=== PATIENT | female | born 1940 | race Caucasian/White ===

== ENCOUNTER 2017-10-23 10:00 | Inpatient (IN) | payer OTHER, MEDICAID ==
[~2017-10-23] VITALS: Ht 160 cm; Wt 38.1 kg
[2017-10-23 10:00] VITALS: BP_SYST 156
--- NOTE | 2017-10-23 10:00 | NUR ---
BIB CARE from [facility]. Placed in room 06. Placed on product design manager, blood pressure machine and pulse oximeter. To gown for exam. Side rails up.
[2017-10-23] MEDS ORDERED: NACL 0.9% 1,000 ML IV ONE ×3 (10:15→12:30)
--- NOTE | 2017-10-23 10:20 | NUR ---
Pt presents to ER brought in per request of Dr. Mitchell from [place]. According to report received, pt has been refusing to eat. Pt is alert but unable to assess orientation, pt is contracted in upper and lower extremities. Pt does not appear to be in any acute distress, pt placed on 3L nasal canula, will continue to monitor pt.
[2017-10-23 10:31] LABS: BASOPHILS % (AUTO) 0.1 % (0.0-2.0); HEMOGLOBIN 11.5 g/dL (12.0-16.0); LYMPHOCYTES # (AUTO) 0.8 K/uL (1.0-5.5); LYMPHOCYTES % (AUTO) 6.5 % (20.5-51.5); MEAN CORPUSCULAR HEMOGLOBIN 28 pg (27-31); MEAN CORPUSCULAR HGB CONC 33 % (32-36); MEAN CORPUSCULAR VOLUME 85 fL (79.0-98.0); MONOCYTES # (AUTO) 0.5 K/uL (0.0-1.0); NEUTROPHILS # (AUTO) 10.8 K/uL (1.8-7.7); NEUTROPHILS % (AUTO) 89.4 % (40.0-70.0); PLATELET COUNT (AUTO) 371 K/uL (130-430); RED BLOOD CELL COUNT(AUTO) 4.11 MIL/uL (4.2-6.2); RED CELL DISTRIBUTION WIDTH 13.6 % (9.0-15.0); WHITE BLOOD COUNT (AUTO) 12.1 K/uL (4.8-10.8)
[2017-10-23 10:46] LABS: ANION GAP 12 (5-15); CALCIUM 9.4 mg/dL (8.4-11.0); CHLORIDE 112 mmol/L (98-107); CREATININE 1.91 mg/dL (0.55-1.30); GLUCOSE 220 mg/dL (70-99); POTASSIUM 3.7 mmol/L (3.5-5.1); SODIUM SERUM 151 mmol/L (136-145); UREA NITROGEN, BLOOD 73 mg/dL (8-21)
[2017-10-23 10:49] LABS: INR 1.1 (0.8-1.2); PROTHROMBIN TIME 11.1 SECS (9.5-12.5)
[2017-10-23 10:50] LABS: ALANINE AMINOTRANSFERASE 17 U/L (12-78); ALBUMIN 2.6 g/dL (3.4-4.8); ASPARTATE AMINOTRANSFERASE 20 U/L (10-37); TOTAL BILIRUBIN 0.4 mg/dL (0.0-1.0)
--- NOTE | 2017-10-23 11:00 | NUR ---
ER at bedside examining patient.
--- NOTE | 2017-10-23 11:05 | NUR ---
# 20 gauge angiocath placed to r forearm. Use of asceptic technique. Opsite placed over site. Blood return noted. Flushed with 10 cc of normal saline. No evidence of infiltration noted. Patient tolerated well.
--- NOTE | 2017-10-23 11:10 | NUR ---
Pt medicated and tolerating well; will continue to monitor.
[2017-10-23 11:49] LABS: BILIRUBIN,URINE NEGATIVE (NEGATIVE); BLOOD, URINE 2+ (NEGATIVE); COLOR,URINE YELLOW (YELLOW); GLUCOSE,URINE NEGATIVE (NEGATIVE); KETONES,URINE NEGATIVE (NEGATIVE); LEUKOCYTE ESTERASE ,URINE 3+ (NEGATIVE); NITRITE, URINE NEGATIVE (NEGATIVE); PH,URINE 6.5 (5.0-8.0); PROTEIN URINE 1+ (NEGATIVE)
[2017-10-23 11:51] LABS: CLARITY/URINE CLOUDY (CLEAR)
[2017-10-23 11:58] LABS: BACTERIA,URINE MANY /HPF (None Seen); WBC,URINE >100 /HPF (0-3)
[2017-10-23 11:59] LABS: MUCUS,URINE None Seen /LPF (None Seen)
--- NOTE | 2017-10-23 12:00 | NUR ---
Pt on gurney resting comfortably, VSS, will continue to monitor.
[2017-10-23] MEDS ORDERED: CARB-60 PO (12:12)
[2017-10-23] MEDS ORDERED: DIVA250T PO (12:12)
[2017-10-23] MEDS ORDERED: DIPH25TA62 (12:12)
[2017-10-23] MEDS ORDERED: FAMO20TA98 PO (12:12)
[2017-10-23] MEDS ORDERED: NA P118E RC ×2 (12:12→12:23)
[2017-10-23] MEDS ORDERED: HYDR-2470 PO (12:12)
[2017-10-23] MEDS ORDERED: COLL100 PO (12:12)
[2017-10-23] MEDS ORDERED: LORA-258 PO (12:12)
[2017-10-23] MEDS ORDERED: FER300L PO (12:12)
[2017-10-23] MEDS ORDERED: ALBU2.5V7 (12:12)
[2017-10-23] MEDS ORDERED: LIP10 PO (12:12)
[2017-10-23] MEDS ORDERED: FOLI-43 PO ×2 (12:12→12:37)
[2017-10-23] MEDS ORDERED: IPRA3AMP9 INH (12:12)
[2017-10-23] MEDS ORDERED: CLON1PAT10 TD (12:12)
[2017-10-23] MEDS ORDERED: IPRA0.2S6 INH (12:12)
[2017-10-23] MEDS ORDERED: CLON0.2T PO (12:12)
[2017-10-23] MEDS ORDERED: DULR10 RC (12:12)
[2017-10-23] MEDS ORDERED: LEVOFLOXACIN 500 MG/D5W 100 ML IV ONE (12:30)
[2017-10-23] MEDS ORDERED: MAGN400O4 PO (12:37)
[2017-10-23] MEDS ORDERED: MELA3TAB43 PO (12:37)
[2017-10-23] MEDS ORDERED: MULT-1189 PO (12:37)
[2017-10-23] MEDS ORDERED: METO-442 PO (12:37)
[2017-10-23] MEDS ORDERED: PIMA17TA PO (12:37)
[2017-10-23] MEDS ORDERED: TYLR650 RC (12:37)
[2017-10-23] MEDS ORDERED: AMLO5TAB4 PO (12:37)
[2017-10-23] MEDS ORDERED: INSU100V9 SUBCUT (12:37)
[2017-10-23] MEDS ORDERED: FURO-150 PO (12:37)
[2017-10-23] MEDS ORDERED: LEVO25TA7 PO (12:37)
[2017-10-23] MEDS ORDERED: GLIP-195 PO (12:37)
[2017-10-23] MEDS ORDERED: LISI-652 PO (12:43)
[2017-10-23] MEDS ORDERED: SERT50TA PO (12:43)
[2017-10-23] MEDS ORDERED: ASCO500T20 PO (12:43)
[2017-10-23] MEDS ORDERED: SSREG SUBCUT (12:48)
[2017-10-23] MEDS ORDERED: LEVE500T13 (12:48)
--- NOTE | 2017-10-23 13:00 | NUR ---
Transfer to tele via ACLS protocol. Licensed nurse present. IV present no signs or symptoms of infiltration.
--- NOTE | 2017-10-23 13:00 | NUR ---
Patient will be admitted to care of Dr. Mitchell. Admitted to tele unit. Will go to room 113b. Belongings list completed. Summary report printed. Report will be given at bedside.
--- NOTE | 2017-10-23 13:30 | NUR ---
admission notes rec patient from er with a dx of uti. awake but non verbally responsive. with o2 at 4 liters via nasal cannula. resp easy and unlabored and no acute distress noted. pt is contracted both upper and lower extremities. incotininent of both ways. had a bowel movement and was cleaned. keep patient dry and cleaned.ivf infusing well on the r forearm and no infiltration noted. pt is close to the nurse station. will continue to monitor patient.
--- NOTE | 2017-10-23 15:00 | NUR ---
REGGIE SCALE EVALUATION: Late note for 1500 secondary to patient care. Patient evaluated for a low Reggie score. Patient was awake, alert, nonverbal and received in a [place] bed with an Isoflex LORENZO mattress. LORENZO therapy was initiated. Patient is unable to turn independently. Skin is intact. Recommend reposition patient side to side only every 2 hours with pillow support and off-load pressure areas with pillows for pressure re-distribution. Elevate, off-load and float bilateral heels with pillows. Use moisture barrier cream on buttocks and other moisture susceptible areas QID and as needed for soiling. Perform skin care and monitor skin integrity Q shift. Maintain patient on a low air-loss mattress. 1. Sacral area: Scar tissue, present on admission. Dark discoloration on surrounding tissue. Recommend: Wash area with mild soap and water. Pat dry. Apply moisture barrier cream. Cover with foam dressing. 2. Left medial knee: Scab, present on admission. 100% black, dry scab. Recommend: No dressing needed. Monitor for signs of worsening.
--- NOTE | 2017-10-23 15:40 | NUR ---
md dr soliz in here to see and eval patient.
[2017-10-23] MEDS ORDERED: IPRATROPIUM BROM 0.5 MG/2.5 ML VIAL.NEB (ATROVENT) INH PRN (15:45)
[2017-10-23] MEDS ORDERED: IPRATROPIUM/ALBUTEROL SULFATE 3 ML AMPUL.NEB INH PRN (15:45)
[2017-10-23] MEDS ORDERED: ALBUTEROL SULFATE 0.083% 2.5 MG/3 ML VIAL.NEB INH PRN (15:45)
[2017-10-23] MEDS ORDERED: ACETAMINOPHEN 650 MG SUPP.RECT RC PRN (15:45)
[2017-10-23] MEDS ORDERED: NA PHOS,M-B/NA PHOS,DI-BA 118 ML (FLEET ENEMA) RC PRN (15:45)
[2017-10-23] MEDS ORDERED: LORazepam 1 MG TABLET PO PRN (15:45)
[2017-10-23] MEDS ORDERED: BISACODYL 10 MG/SUPPOSITORY RC PRN (15:45)
[2017-10-23] MEDS ORDERED: MILK OF MAGNESIA 30 ML UDC PO PRN (15:45)
--- NOTE | 2017-10-23 16:00 | NUR ---
rounds incontinent of urine and changed at intervals.
[2017-10-23 16:01] VITALS: BP_SYST 165
[2017-10-23 16:18] VITALS: BP_SYST 155
[2017-10-23 16:34] LABS: ANION GAP 9 (5-15); CHLORIDE 116 mmol/L (98-107); GLUCOSE 78 mg/dL (70-99); POTASSIUM 3.6 mmol/L (3.5-5.1); SODIUM SERUM 151 mmol/L (136-145); UREA NITROGEN, BLOOD 59 mg/dL (8-21)
--- NOTE | 2017-10-23 16:49 | NUR ---
CONSULTATION PAGED/CALLED Reason for Consultation: ACUTE RENAL FAILURE Person Who was Notified: SPOKE WITH MYLES FROM DR OFFICE Consulting Physician: LISA NERI DR IS ONCALL THROUGHOUT WEEKEND Apartment Hotel Manager Specialty: RENAL Ordering Physician: ROMAIN RUIZ
[2017-10-23] MEDS ORDERED: LEVOFLOXACIN 250 MG/D5W 50 ML IV SCH (17:45)
[2017-10-23] MEDS ORDERED: GLUCOSE 15 GM GEL (in 37.5 GM TUBE) PO PRN ×2 (18:00)
[2017-10-23] MEDS ORDERED: DEXTROSE 50%-WATER 50 ML DISP.SYRIN IVP PRN (18:00)
--- NOTE | 2017-10-23 18:00 | NUR ---
rounds seen by dr soliz and spoke with the pt's business support administrator.pt refused to eat and dr is aware. seen by dr coker at bedside. resting quietly, no hypo hyperglycemic reaction noted. bed in low position and side rails up and locked.
[2017-10-23] MEDS: 0.45% NACL 1,000 ML IV SCH (18:38)
[2017-10-23 19:55] VITALS: BP_SYST 157
--- NOTE | 2017-10-23 19:55 | NUR ---
INITIAL NOTE Patient resting on the bed. No acute distress. Respiration even and unlabored. On O2 2L/min via NC. Non verbally responsive. Skin warm and dry to touch. IV intact ti RFA, no redness, no swelling, no drainage. On 1/2NS at 100ml/hr, infusing well. Safety measure maintained. Bed locked with lowest position, side rails up, bed alarm on. Call light within reached. Will continue to monitor.
--- NOTE | 2017-10-23 20:15 | NUR ---
DRUM FILLER GIVING BED BATH TO PATIENT
[2017-10-23] MEDS ORDERED: NON-FORMULARY MEDICATION (Melatonin 3 MG) PO SCH (21:00)
[2017-10-23] MEDS: DOCUSATE SODIUM 100 MG/10 ML UDC PO SCH (22:07)
[2017-10-23] MEDS: levETIRAcetam 500 MG TABLET PO SCH (22:08)
[2017-10-23] MEDS: DIVALPROEX SODIUM 250 MG TAB.SR.24H (DEPAKOTE ER) PO SCH (22:08)
[2017-10-23] MEDS: CARBIDOPA/LEVODOPA 10/100 MG TABLET PO SCH (22:08)
[2017-10-23] MEDS: LISINOPRIL 20 MG TABLET PO SCH (22:08)
--- NOTE | 2017-10-23 22:17 | NUR ---
BS=63 No acute distress. No s/s of hypoglycemia noted. Glucose 15gm PO and orange 120ml given. Will rechecked BS and notify
--- NOTE | 2017-10-23 22:51 | NUR ---
RECHECKED BLOOD SUGAR BS=85, no s/s of hypoglycemia noted. No acute distress. Continue on O2 2L/min via NC. Safety measure maintained. Bed locked with lowest position, side rails up, bed alarm on. Call light within reached. Continue to monitor.
--- NOTE | 2017-10-23 23:02 | NUR ---
Pagedonald Mitchell Pagedonald Mitchell, dialed [phone], s/w Cassy.
--- NOTE | 2017-10-23 23:12 | NUR ---
LARISSA COOK CALLED BACK Informed Dr. Mitchell regarding the BS=63, Glucose 15gm PO and orange juice 120ml given. Rechecked BS=85. Dr. Mitchell stated "BS=85, that's fine. If any concern to call Dr. Carlson who is covering."
[2017-10-24 00:34] VITALS: BP_SYST 171
--- NOTE | 2017-10-24 01:13 | NUR ---
NOTE Patient resting on the bed comfortable. No acute distress. Respiration even and unlabored. On O2 2L/min via NC. IV intact, IVF infusing well. Safety measure maintained. Bed locked with lowest position, side rails up, bed alarm on. Call light within reached. Continue to monitor.
--- NOTE | 2017-10-24 03:18 | NUR ---
NOTE Patient resting on the bed with eyes closed. No acute distress. Respiration even and unlabored. On O2 2L/min via NC. IV intact, IVF infusing well. Safety measure maintained. Bed locked with lowest position, side rails up, bed alarm on. Call light within reached. Continue to monitor.
--- NOTE | 2017-10-24 05:00 | NUR ---
NOTE Patient resting on the bed with eyes closed. No acute distress. Respiration even and unlabored. On O2 2L/min via NC. IV intact, IVF infusing well. Safety measure maintained. Call light within reached. Bed locked with lowest position, side rails up, bed alarm on. Continue to monitor.
[2017-10-24] MEDS: 0.45% NACL 1,000 ML IV SCH ×2 (05:31→14:16)
[2017-10-24] MEDS: LEVOTHYROXINE SODIUM 0.025 MG TABLET PO SCH (06:33)
--- NOTE | 2017-10-24 06:53 | NUR ---
CLOSING NOTE Patient resting on the bed. No acute distress. Respiration even and unlabored. Continue on O2 2L/min via NC. Non verbally responsive. Skin warm and dry to touch. IV intact to RFA, no redness, no swelling, no drainage. On 1/2NS at 100ml/hr, infusing well. All needs met. Hourly rounding during shift. BS= 115 this morning, no insulin coverage needed. Safety measure maintained. Bed locked with lowest position, side rails up, bed alarm on. Call light within reached. Will endorse to morning shift nurse.
[2017-10-24 07:11] LABS: BASOPHILS % (AUTO) 0.1 % (0.0-2.0); EOSINOPHILS % (AUTO) 0.2 % (0.0-4.0); HEMOGLOBIN 10.1 g/dL (12.0-16.0); LYMPHOCYTES # (AUTO) 0.9 K/uL (1.0-5.5); LYMPHOCYTES % (AUTO) 6.9 % (20.5-51.5); MEAN CORPUSCULAR HEMOGLOBIN 28 pg (27-31); MEAN CORPUSCULAR HGB CONC 33 % (32-36); MEAN CORPUSCULAR VOLUME 86 fL (79.0-98.0); MONOCYTES # (AUTO) 0.5 K/uL (0.0-1.0); MONOCYTES % (AUTO) 3.9 % (1.7-9.3); NEUTROPHILS % (AUTO) 88.9 % (40.0-70.0); PLATELET COUNT (AUTO) 339 K/uL (130-430); RED BLOOD CELL COUNT(AUTO) 3.63 MIL/uL (4.2-6.2); RED CELL DISTRIBUTION WIDTH 13.7 % (9.0-15.0); WHITE BLOOD COUNT (AUTO) 12.4 K/uL (4.8-10.8)
[2017-10-24 07:20] LABS: ANION GAP 7 (5-15); CALCIUM 9.2 mg/dL (8.4-11.0); CHLORIDE 114 mmol/L (98-107); CREATININE 1.26 mg/dL (0.55-1.30); GLUCOSE 132 mg/dL (70-99); POTASSIUM 3.4 mmol/L (3.5-5.1); SODIUM SERUM 148 mmol/L (136-145); UREA NITROGEN, BLOOD 44 mg/dL (8-21)
--- NOTE | 2017-10-24 07:27 | NUR ---
Initial Note Received report from the night nurse Isabell. Pt AOX1. No signs of distress noted at this time. Bed is a lowest position and bed alarm on. Call light within reach.
[2017-10-24 08:05] VITALS: BP_SYST 174
[2017-10-24] MEDS ORDERED: PIMAVANSERIN TARTRATE 34 MG PO SCH (09:00)
[2017-10-24] MEDS ORDERED: INSULIN GLARGINE 100 UNITS/ML 10 ML VIAL SUBCUT SCH (09:00)
[2017-10-24] MEDS ORDERED: FUROSEMIDE 20 MG TABLET PO SCH (09:00)
[2017-10-24] MEDS ORDERED: FOLIC ACID 1 MG TABLET PO SCH (09:00)
[2017-10-24] MEDS: CARBIDOPA/LEVODOPA 10/100 MG TABLET PO SCH ×3 (10:18→21:52)
[2017-10-24] MEDS: FERROUS SULFATE 300 MG/5 ML UDC PO SCH (10:18)
[2017-10-24] MEDS: FOLIC ACID 1 MG TABLET PO SCH (10:19)
[2017-10-24] MEDS: DIVALPROEX SODIUM 250 MG TAB.SR.24H (DEPAKOTE ER) PO SCH ×2 (10:20→21:54)
[2017-10-24] MEDS: DOCUSATE SODIUM 100 MG/10 ML UDC PO SCH ×2 (10:20→21:51)
[2017-10-24] MEDS: ASCORBIC ACID 500 MG TABLET PO SCH (10:21)
[2017-10-24] MEDS: levETIRAcetam 500 MG TABLET PO SCH ×2 (10:21→21:52)
[2017-10-24] MEDS: MULTIVITS,CA,MINERALS/IRON/FA 1 TABLET PO SCH (10:21)
[2017-10-24] MEDS: LISINOPRIL 20 MG TABLET PO SCH ×2 (10:21→21:53)
[2017-10-24] MEDS: SERTRALINE HCL 50 MG TABLET PO SCH (10:21)
[2017-10-24] MEDS: amLODIPine BESYLATE 5 MG TABLET PO SCH (10:22)
[2017-10-24] MEDS: ATORVASTATIN 10 MG TABLET PO SCH (10:22)
[2017-10-24] MEDS: FAMOTIDINE 20 MG TABLET PO SCH (10:22)
[2017-10-24] MEDS: LEVOFLOXACIN 250 MG/D5W 50 ML IV SCH (10:23)
[2017-10-24] MEDS: glipiZIDE XL 5 MG TAB ( GLUCOTROL XL) PO SCH (10:25)
--- NOTE | 2017-10-24 11:45 | NUR ---
RN Rounds Pt awake and does not shows any signs of distress at this time. Bed is at lowest position with bed alarm on. Call light within reach.
[2017-10-24 12:47] VITALS: BP_SYST 168
--- NOTE | 2017-10-24 14:10 | NUR ---
Abnormal Labs Called Dr. Carlson to report Na 148, K 3.4. and ordered potassium 20 meq x 1, pureed diet.
[2017-10-24] MEDS: METOPROLOL TARTRATE 50 MG TABLET PO SCH ×2 (14:11→21:53)
[2017-10-24] MEDS ORDERED: POTASSIUM CHLORIDE 20 MEQ/PKT PACKET PO ONE (14:30)
--- NOTE | 2017-10-24 15:30 | NUR ---
RN Rounds Pt awake and does not shows any signs of distress at this moment. Bed is at lowest position with bed alarm on. Call light within reach.
[2017-10-24 16:10] VITALS: BP_SYST 154
[2017-10-24] MEDS: DEXTROSE 50%-WATER 50 ML DISP.SYRIN IVP PRN (17:47)
--- NOTE | 2017-10-24 17:50 | NUR ---
Blood Glucose BS 56. Dextrose 50% IVP given. Waiting to recheck BS. Addendum: 10/24/17 at 1806 by Abelardo Chicas RN Rechecked blood sugar after 15 min and is now at 185
--- NOTE | 2017-10-24 18:50 | NUR ---
Closing Note Pt AOX1. No signs of distress noted at this time. Bed is at lowest position with bed alarm on. Call light within reach.
[2017-10-24 19:05] VITALS: BP_SYST 155
--- NOTE | 2017-10-24 19:05 | NUR ---
OPENING NOTE Received SBAR report from [facility] JOCE Zhou. Patient is awake/alert, not oriented. No acute distress noted, 155/78 79 18 98.1 99% (2L NC) and does not appear to be in any pain/discomfort. IV to the right forearm 20G, running 1/2 NS @ 100ml/hr, verified patency with good blood return/flush. Introduced myself to patient, updated whiteboard and oriented patient to room. Bed to lowest position and locked, 3 side rails up, bed alarm activated and call light is within her reach. Will continue to monitor patient.
--- NOTE | 2017-10-24 21:20 | NUR ---
ROUNDS Patient is awake/alert, non-verbal or oriented. Patient does not seem to be in any acute distress. She has no shortness of breath, and equal rise and fall of chest with 18/min respirations. STONEMASON APPRENTICE currently in with patient changing linens and patient. Bed to lowest position and locked, 3 side rails up, bed alarm activated and call light is within her reach. Will continue to monitor patient.
[2017-10-24] MEDS: ENOXAPARIN SODIUM 30 MG/0.3 ML SYRINGE SUBCUT SCH (21:53)
--- NOTE | 2017-10-24 21:55 | NUR ---
BLOOD GLUCOSE : 124 No correction necessary per physician ordered sliding scale.
[2017-10-24 23:16] VITALS: BP_SYST 161
--- NOTE | 2017-10-25 00:09 | NUR ---
ROUNDS Patient is still awake with no shortness of breath or acute distress noted. Respirations are still non-labored and even. Gave patient some water via straw. Bed to lowest position and locked, 3 side rails up, bed alarm activated and call light is within her reach. Will continue to monitor patient.
[2017-10-25] MEDS: 0.45% NACL 1,000 ML IV SCH ×4 (00:27→22:05)
--- NOTE | 2017-10-25 02:29 | NUR ---
ROUNDS Patient is awake/alert. Originally patient was thought to be non-verbal. Spoke to patient, asked her if she was cold as I noticed goosebumps she said 'yes', asked her if she's in pain, she says 'no'. Asked patient if there is anything I can get for her, she does not respond. O2 is applied and flowing. IV site is clean/dry/intact.Bed to lowest position and locked, 3 side rails up, bed alarm activated and call light is within her reach. Will continue to monitor patient.
--- NOTE | 2017-10-25 04:40 | NUR ---
ROUNDS Patient is still sleeping. Symmetric, non-labored respirations, 16/min. O2 applied/functioning. IV site clean/dry/intact with no signs of redness or infiltration and 1/2 NS running @ 100ml/hr. Bed to lowest position and locked, bed alarm activated, call light within her reach, 3 side rails are up. Will continue to monitor patient.
[2017-10-25] MEDS: LEVOTHYROXINE SODIUM 0.025 MG TABLET PO SCH (06:21)
[2017-10-25] MEDS: METOPROLOL TARTRATE 50 MG TABLET PO SCH ×3 (06:23→21:56)
--- NOTE | 2017-10-25 06:23 | NUR ---
BLOOD GLUCOSE : 65 Gave 4oz OJ, re-checked blood glucose: 86 Will continue to monitor patient.
[2017-10-25] MEDS: cloNIDine HCL 0.2 MG TABLET PO PRN (06:26)
--- NOTE | 2017-10-25 06:26 | NUR ---
CATAPRES Patient's BP 165/65, administered Catapres 0.2mg as order for SBP >150. Will follow-up to ensure effective BP management. Addendum: 10/25/17 at 0719 by Althea Dupree RN BP is now 142/69
--- NOTE | 2017-10-25 07:19 | NUR ---
CLOSING NOTE Gave end of shift sbar report to day shift RNAbelardo. Patient is awake/alert, not oriented: in no acute distress All needs expectations and interventions met by nightshift RN. Transfer of care successful.
[2017-10-25 07:25] VITALS: BP_SYST 142
--- NOTE | 2017-10-25 07:25 | NUR ---
Initial Note Received report from the night nurse Althea. Pt AOX1. No signs of distress noted at this time. Bed is at lowest position with bed alarm on. Call light within reach.
[2017-10-25 08:05] LABS: ANION GAP 7 (5-15); CALCIUM 8.7 mg/dL (8.4-11.0); CHLORIDE 108 mmol/L (98-107); GLUCOSE 70 mg/dL (70-99); POTASSIUM 3.7 mmol/L (3.5-5.1); SODIUM SERUM 140 mmol/L (136-145); UREA NITROGEN, BLOOD 27 mg/dL (8-21)
[2017-10-25 08:08] LABS: BASOPHILS % (AUTO) 0.1 % (0.0-2.0); EOSINOPHILS # (AUTO) 0.1 K/uL (0.0-0.4); EOSINOPHILS % (AUTO) 0.6 % (0.0-4.0); HEMATOCRIT 30.4 % (36-48); LYMPHOCYTES # (AUTO) 1.5 K/uL (1.0-5.5); LYMPHOCYTES % (AUTO) 13.8 % (20.5-51.5); MEAN CORPUSCULAR HEMOGLOBIN 28 pg (27-31); MEAN CORPUSCULAR HGB CONC 33 % (32-36); MEAN CORPUSCULAR VOLUME 86 fL (79.0-98.0); MONOCYTES # (AUTO) 0.5 K/uL (0.0-1.0); MONOCYTES % (AUTO) 4.5 % (1.7-9.3); NEUTROPHILS # (AUTO) 8.8 K/uL (1.8-7.7); PLATELET COUNT (AUTO) 373 K/uL (130-430); RED BLOOD CELL COUNT(AUTO) 3.54 MIL/uL (4.2-6.2); RED CELL DISTRIBUTION WIDTH 13.3 % (9.0-15.0); WHITE BLOOD COUNT (AUTO) 10.9 K/uL (4.8-10.8)
[2017-10-25] MEDS: FERROUS SULFATE 300 MG/5 ML UDC PO SCH (09:08)
[2017-10-25] MEDS: DOCUSATE SODIUM 100 MG/10 ML UDC PO SCH ×2 (09:08→21:51)
[2017-10-25] MEDS: FOLIC ACID 1 MG TABLET PO SCH (09:08)
[2017-10-25] MEDS: ATORVASTATIN 10 MG TABLET PO SCH (09:09)
[2017-10-25] MEDS: MULTIVITS,CA,MINERALS/IRON/FA 1 TABLET PO SCH (09:09)
[2017-10-25] MEDS: SERTRALINE HCL 50 MG TABLET PO SCH (09:09)
[2017-10-25] MEDS: levETIRAcetam 500 MG TABLET PO SCH ×2 (09:09→21:52)
[2017-10-25] MEDS: LISINOPRIL 20 MG TABLET PO SCH ×2 (09:09→21:55)
[2017-10-25] MEDS: amLODIPine BESYLATE 5 MG TABLET PO SCH (09:10)
[2017-10-25] MEDS: ASCORBIC ACID 500 MG TABLET PO SCH (09:10)
[2017-10-25] MEDS: FAMOTIDINE 20 MG TABLET PO SCH (09:10)
[2017-10-25] MEDS: CARBIDOPA/LEVODOPA 10/100 MG TABLET PO SCH ×3 (09:11→21:52)
[2017-10-25] MEDS: DIVALPROEX SODIUM 250 MG TAB.SR.24H (DEPAKOTE ER) PO SCH ×2 (09:12→21:52)
[2017-10-25] MEDS: LEVOFLOXACIN 250 MG/D5W 50 ML IV SCH (09:12)
[2017-10-25] MEDS: glipiZIDE XL 5 MG TAB ( GLUCOTROL XL) PO SCH (09:48)
--- NOTE | 2017-10-25 11:56 | NUR ---
DISCHARGE PLANNING - ATTEMPT TO GET ADDITIONAL INFO ABOUT PATIENT C/S with listed person to notify: Jacinto Sosa ph: [phone]. He stated he has known patient x9 yrs now when patient became active in their taoist, Jehov[employer] Witness. He do not know much about pt's education or family. He thinks pt's other friend, Shraddha Winston, is her DPOA. He gave contact cell phone for Joanne: [phone], land line: [phone]. Atempted to contact Shraddhadominick Tripathiona cell phone: [phone], land line: [phone]. Left . Contacted listed ph: [phone]. Left . Shraddha returned call. She stated she has only 1 working phone number: [phone]. The rest of the phone numbers do not belong to her anymore. She stated she is the DPOA for patient. She will fax CM a copy. Joanne assisted in completion of DCP today.
[2017-10-25 12:49] VITALS: BP_SYST 131
--- NOTE | 2017-10-25 14:30 | NUR ---
Paged Dr. Carlson to report: pt is positive for E.Coli/MDRO of the urin, and blood culture: gram positive cocci in cluster. Has already called and ordered [facility] to dose, Rocephin 1 GM IV q24hr, and DC Levaquin.
[2017-10-25] MEDS ORDERED: cefTRIAXone 1 GM in D5W 50 ML IV ONE (16:00)
[2017-10-25 16:15] VITALS: BP_SYST 149
[2017-10-25] MEDS ORDERED: VANCOMYCIN HCL 500 MG in NS 100 ML IV SCH (17:00)
--- NOTE | 2017-10-25 18:41 | NUR ---
Closing Note Pt AOX1. No signs of distress noted at this time. Bed is at lowest position with bed alarm on. Call light within reach. Pt positive for E.Coli/MDRO of the urine, and blood culture gram positive cocci in cluster. Dr. Carlson is aware and ordered [facility] pharmacy to dose, Rocephin 1 GM IV q24hr, and DC Levaquin.
[2017-10-25 19:00] VITALS: BP_SYST 191
[2017-10-25 20:00] VITALS: BP_SYST 191
[2017-10-25] MEDS: ENOXAPARIN SODIUM 30 MG/0.3 ML SYRINGE SUBCUT SCH (21:53)
[2017-10-26] VITALS: BP_SYST 149
--- NOTE | 2017-10-26 05:59 | NUR ---
Consult called for Shana Hargrove Reason for consultation: Bacteremia Ordered by Dr. Carlson Person who was notified: Karina
[2017-10-26] MEDS: METOPROLOL TARTRATE 50 MG TABLET PO SCH ×3 (06:13→21:13)
[2017-10-26] MEDS: LEVOTHYROXINE SODIUM 0.025 MG TABLET PO SCH (06:14)
[2017-10-26 07:09] LABS: HEMATOCRIT 35.5 % (36-48); HEMOGLOBIN 11.7 g/dL (12.0-16.0); MEAN CORPUSCULAR HEMOGLOBIN 28 pg (27-31); MEAN CORPUSCULAR HGB CONC 33 % (32-36); MEAN CORPUSCULAR VOLUME 85 fL (79.0-98.0); PLATELET COUNT (AUTO) 474 K/uL (130-430); RED BLOOD CELL COUNT(AUTO) 4.16 MIL/uL (4.2-6.2); RED CELL DISTRIBUTION WIDTH 13.6 % (9.0-15.0); WHITE BLOOD COUNT (AUTO) 11.4 K/uL (4.8-10.8)
--- NOTE | 2017-10-26 07:50 | NUR ---
Nutrition Update Reggie Scale 11 noted. Pt admitted for UTI Diet: Pureed diet BMI: 14.9 kg/m2 RD to follow per nutrition care standards.
--- NOTE | 2017-10-26 07:53 | NUR ---
OPENING NOTE PATIENT RECEIVED RESTING IN BED IN STABLE CONDITION. NO DISTRESS OR SOB NOTED. IV SITE INTACT WITH NO REDNESS OR SIGNS OF INFILTRATION. BED ALARM WATER AND SEWER SYSTEMS SUPERINTENDENT LIGHT IN REACH, BED ON LOWEST POSITION. WILL CONTINUE TO MONITOR.
[2017-10-26 08:11] LABS: CREATININE 0.89 mg/dL (0.55-1.30); GLUCOSE 86 mg/dL (70-99); UREA NITROGEN, BLOOD 22 mg/dL (8-21)
[2017-10-26 08:20] LABS: ANION GAP 8 (5-15); CHLORIDE 105 mmol/L (98-107); POTASSIUM 4.3 mmol/L (3.5-5.1); SODIUM SERUM 136 mmol/L (136-145)
[2017-10-26 08:24] VITALS: BP_SYST 124
[2017-10-26 08:37] LABS: BAND % (MANUAL) 2 % (0-6); LYMPHOCYTES % (MANUAL) 17 % (20-46); MONOCYTES % (MANUAL) 2 % (0-11)
[2017-10-26 08:38] LABS: BASOPHILS % (MANUAL) 0 % (0-2); EOSINOPHILS % (MANUAL) 1 % (0-7)
[2017-10-26] MEDS: DOCUSATE SODIUM 100 MG/10 ML UDC PO SCH ×2 (09:43→21:11)
[2017-10-26] MEDS: cefTRIAXone 1 GM in D5W 50 ML IV SCH (09:43)
[2017-10-26] MEDS: FERROUS SULFATE 300 MG/5 ML UDC PO SCH (09:43)
[2017-10-26] MEDS: FOLIC ACID 1 MG TABLET PO SCH (09:44)
[2017-10-26] MEDS: ASCORBIC ACID 500 MG TABLET PO SCH (09:44)
[2017-10-26] MEDS: ATORVASTATIN 10 MG TABLET PO SCH (09:44)
[2017-10-26] MEDS: MULTIVITS,CA,MINERALS/IRON/FA 1 TABLET PO SCH (09:45)
[2017-10-26] MEDS: glipiZIDE XL 5 MG TAB ( GLUCOTROL XL) PO SCH (09:45)
[2017-10-26] MEDS: levETIRAcetam 500 MG TABLET PO SCH ×2 (09:45→21:13)
[2017-10-26] MEDS: CARBIDOPA/LEVODOPA 10/100 MG TABLET PO SCH ×3 (09:45→21:12)
[2017-10-26] MEDS: amLODIPine BESYLATE 5 MG TABLET PO SCH (09:45)
[2017-10-26] MEDS: LISINOPRIL 20 MG TABLET PO SCH ×2 (09:45→21:12)
[2017-10-26] MEDS: FAMOTIDINE 20 MG TABLET PO SCH (09:46)
[2017-10-26] MEDS: DIVALPROEX SODIUM 250 MG TAB.SR.24H (DEPAKOTE ER) PO SCH ×2 (09:46→21:11)
[2017-10-26] MEDS: SERTRALINE HCL 50 MG TABLET PO SCH (09:46)
[2017-10-26 10:07] VITALS: BP_SYST 124
[2017-10-26 11:09] VITALS: BP_SYST 159
--- NOTE | 2017-10-26 11:37 | NUR ---
ROUNDS PATIENT RESTING IN BED IN STABLE CONDITION WITH NO S/S OF DISTRESS OR SOB NOTED. TURNED, REPOSITIONED, AND CLEANED WITH LEAD SECURITY OFFICER. WILL CONTINUE TO MONITOR.
[2017-10-26] MEDS: 0.45% NACL 1,000 ML IV SCH ×2 (13:58→23:27)
--- NOTE | 2017-10-26 14:32 | NUR ---
ROUNDS PATIENT RESTING IN BED IN STABLE CONDITION. NO S/S OF DISTRESS OR SOB NOTED AT THIS TIME. NO EVIDENCE OF PAIN. PATIENT REPOSITIONED AND CHANGED. IV SITE INTACT WITH NO REDNESS OR SIGNS OF INFILTRATION NOTED. BED ALARM ON, BED IN LOWEST POSITION, CALL LIGHT IN REACH. WILL CONTINUE TO MONITOR.
--- NOTE | 2017-10-26 14:45 | NUR ---
Dietitian Recommendations *Recommend continuing pureed diet nectar thick liquid per MD orders. Oral supplement Boost Plus comes standard w/ Pureed diet, provides additional 1080 kcal and 42 gm protein daily. Please see Nutritional Assessment for details. JONATHAN, RD
[2017-10-26] MEDS: cloNIDine HCL 0.2 MG TABLET PO PRN (16:31)
[2017-10-26 16:35] VITALS: BP_SYST 185
--- NOTE | 2017-10-26 19:06 | NUR ---
CLOSING NOTE PATIENT RESTING IN BED IN STABLE CONDITION. NO S/S OF DISTRESS OR SOB NOTED. 2L O2 VIA NASAL CANULA IN PLACE. IV SITE INTACT WITH NO REDNESS OR SIGNS OF INFILTRATION. BED ALARM IN LOWEST POSITION, BED ALARM ON, CALL LIGHT IN REACH. WILL ENDORSE TO FRETTED INSTRUMENT MAKER HAND RN.
[2017-10-26 19:30] VITALS: BP_SYST 125
--- NOTE | 2017-10-26 19:58 | NUR ---
OPENING Bedside report recieved, pt awake in bed at this time, nonverbal, fussy. In NAD, fluids running continuously, safety maintained, call dunlap with patient, bed alarm active. VSS. Contact precuations maintained, continue POC as per MD orders.
[2017-10-26] MEDS: ENOXAPARIN SODIUM 30 MG/0.3 ML SYRINGE SUBCUT SCH (21:13)
[2017-10-26] MEDS: INSULIN REGULAR, HUMAN 100 UNITS/ML, 10 ML VIAL (novoLIN R) SUBCUT PRN (21:15)
--- NOTE | 2017-10-26 21:50 | NUR ---
medication Blood sugar 113 with no coverage needed. BP elevated and medications admin as per orders. Pt swallowed pills crushed in boost drink at bedside. Pt cleaned at this time as she is incontinent of urine and stool. Pt in NAD, all needs met. Safety maintained, contact precautions maintained. Cont POC as per MD orders/
[2017-10-26] MEDS: hydrALAZINE HCL 25 MG TABLET PO SCH ×2 (23:26→23:45)
--- NOTE | 2017-10-27 00:15 | NUR ---
rounds Pt resting comfortably in bed at this time, Blood pressure 127/57 HR 90s. Hydralazine PO administered as per orders. Pt safety maintained, new bag of NS hung at this time. Cont POC as per MD orders. Safety maintained
[2017-10-27 01:22] VITALS: BP_SYST 160
--- NOTE | 2017-10-27 02:09 | NUR ---
Rounds Pt resting comfortably in bed at this time, all needs met, safety maintained, nasal canulla placed back on patient an she seems to fuss with it and take it off. Continue POC as per MD orders.
--- NOTE | 2017-10-27 04:18 | NUR ---
Rounds Pt resting comfortably at this time, NAD noted. Safety maintained, call dunlap with patient, turn and position, sacral foam drsg intact, continue with POC as per MD orders.
[2017-10-27] MEDS: INSULIN REGULAR, HUMAN 100 UNITS/ML, 10 ML VIAL (novoLIN R) SUBCUT PRN ×2 (06:27→21:24)
[2017-10-27] MEDS: METOPROLOL TARTRATE 50 MG TABLET PO SCH ×3 (06:28→23:14)
[2017-10-27] MEDS: LEVOTHYROXINE SODIUM 0.025 MG TABLET PO SCH (06:28)
[2017-10-27] MEDS: hydrALAZINE HCL 25 MG TABLET PO SCH ×4 (06:28→23:14)
--- NOTE | 2017-10-27 06:53 | NUR ---
am rounds, CLOSING Pt BP 159/74, HR 90s this am. Hydralazine and lopressor administered per orders crushed in pureed cranberry. Pt blood glucose 70 this am, given pureed cranberry and viscose cellar charge hand Alyce kennedy. Instructed to let her drink that and follow up day shift, pt to be fed breakfast shortly as well. Pt in NAD, all other needs met at this time. Pt safety maintained, bed alarm active, incontinent to pad, IVF fluids running as per MD orders, will endorse POC to day RN at this time. Contact precautions maintained.
[2017-10-27 08:00] VITALS: BP_SYST 177
--- NOTE | 2017-10-27 08:00 | NUR ---
Initial notes: Patient on bed awake, alert and oriented to name. Non verbal. I.V. access patent. Safety measures in placed. Report received at bedside.
[2017-10-27] MEDS: DOCUSATE SODIUM 100 MG/10 ML UDC PO SCH ×2 (08:21→21:19)
[2017-10-27] MEDS: FERROUS SULFATE 300 MG/5 ML UDC PO SCH (08:21)
[2017-10-27] MEDS: cefTRIAXone 1 GM in D5W 50 ML IV SCH (08:21)
[2017-10-27] MEDS: FAMOTIDINE 20 MG TABLET PO SCH (08:22)
[2017-10-27] MEDS: ATORVASTATIN 10 MG TABLET PO SCH (08:22)
[2017-10-27] MEDS: FOLIC ACID 1 MG TABLET PO SCH (08:22)
[2017-10-27] MEDS: MULTIVITS,CA,MINERALS/IRON/FA 1 TABLET PO SCH (08:22)
[2017-10-27] MEDS: amLODIPine BESYLATE 5 MG TABLET PO SCH (08:23)
[2017-10-27] MEDS: LISINOPRIL 20 MG TABLET PO SCH ×2 (08:23→21:23)
[2017-10-27] MEDS: CARBIDOPA/LEVODOPA 10/100 MG TABLET PO SCH ×3 (08:24→21:23)
[2017-10-27] MEDS: levETIRAcetam 500 MG TABLET PO SCH ×2 (08:24→21:23)
[2017-10-27] MEDS: SERTRALINE HCL 50 MG TABLET PO SCH (08:24)
[2017-10-27] MEDS: ASCORBIC ACID 500 MG TABLET PO SCH (08:24)
[2017-10-27] MEDS: DIVALPROEX SODIUM 250 MG TAB.SR.24H (DEPAKOTE ER) PO SCH ×2 (08:25→21:23)
[2017-10-27] MEDS: glipiZIDE XL 5 MG TAB ( GLUCOTROL XL) PO SCH (08:34)
--- NOTE | 2017-10-27 08:38 | NUR ---
ID consult: called exchange to request consultation again from Dr. Hargrove for bacteremia.
--- NOTE | 2017-10-27 08:47 | NUR ---
medication: medication given crushed with apple sauce. Patient able to swallow and difficult to give medication, keeps on scratching the nurse.
[2017-10-27 09:01] LABS: HEMATOCRIT 33.4 % (36-48); HEMOGLOBIN 10.9 g/dL (12.0-16.0); MEAN CORPUSCULAR HEMOGLOBIN 28 pg (27-31); MEAN CORPUSCULAR HGB CONC 33 % (32-36); MEAN CORPUSCULAR VOLUME 86 fL (79.0-98.0); PLATELET COUNT (AUTO) 512 K/uL (130-430); RED BLOOD CELL COUNT(AUTO) 3.88 MIL/uL (4.2-6.2); RED CELL DISTRIBUTION WIDTH 13.6 % (9.0-15.0); WHITE BLOOD COUNT (AUTO) 11.6 K/uL (4.8-10.8)
[2017-10-27 09:26] LABS: ANION GAP 6 (5-15); CALCIUM 8.5 mg/dL (8.4-11.0); CHLORIDE 109 mmol/L (98-107); CREATININE 0.88 mg/dL (0.55-1.30); GLUCOSE 101 mg/dL (70-99); POTASSIUM 4.2 mmol/L (3.5-5.1); SODIUM SERUM 139 mmol/L (136-145); UREA NITROGEN, BLOOD 24 mg/dL (8-21)
[2017-10-27 09:47] LABS: BAND % (MANUAL) 3 % (0-6); LYMPHOCYTES % (MANUAL) 13 % (20-46)
[2017-10-27 09:48] LABS: BASOPHILS % (MANUAL) 0 % (0-2); EOSINOPHILS % (MANUAL) 2 % (0-7); MONOCYTES % (MANUAL) 5 % (0-11)
[2017-10-27] MEDS: 0.45% NACL 1,000 ML IV SCH ×2 (10:31→21:19)
[2017-10-27] MEDS: cloNIDine HCL 0.2 MG TABLET PO PRN (10:32)
--- NOTE | 2017-10-27 10:34 | NUR ---
Increased BP: Increased BP. Due meds given. Iza kennedy.
[2017-10-27 11:46] VITALS: BP_SYST 126
--- NOTE | 2017-10-27 12:30 | NUR ---
rounds: patient on bed awake and non verbal. no distress noted. BP controlled.
--- NOTE | 2017-10-27 13:33 | NUR ---
rounds: patient on bed resting. no distress noted.
[2017-10-27 16:10] VITALS: BP_SYST 137
--- NOTE | 2017-10-27 17:00 | NUR ---
rounds: patient resting. no distress noted.
[2017-10-27 18:44] VITALS: BP_SYST 132
--- NOTE | 2017-10-27 18:59 | NUR ---
closing notes: Patient on bed resting. Stable. Needs attended. Safety measures in placed. Call light within reach. Report will be given to evening or night nurse supervisor.
[2017-10-27 19:30] VITALS: BP_SYST 137
--- NOTE | 2017-10-27 20:00 | NUR ---
OPENING Pt receieved from JOCE Lr at change of shit, pt in NAD at this time, IVF running as per orders, needs met, continue POC as per MD orders. VSS. Safety maintained, contact precautions maintained.
[2017-10-27] MEDS: ENOXAPARIN SODIUM 30 MG/0.3 ML SYRINGE SUBCUT SCH (21:24)
--- NOTE | 2017-10-27 21:57 | NUR ---
it security administrator, rounds, cleaned at this time Pt fighting during cleaning and checking blood sugar at this time, grabbing and scratching. Blood sugar 109 no correction needed. BP 137/66, HR 66. Meds crushed and admin with boost drink at this time. New bag 1/2 NS hung at this time, Safety maintained, turned and repositioned, bed alarm active, cont POC as per MD orders.
--- NOTE | 2017-10-27 23:37 | NUR ---
Pt BP 159/74, HR 90 at this time: lopressor and hydralazine admin PO as per MD orders. Pt turned and positioned. All new tubing changed as they are up at midnight. Safety maintained, call dunlap in bed with patient, hourly rounding continued, contact precautions active, bed alarm active. Continue POC as per MD orders.
[2017-10-28 00:34] VITALS: BP_SYST 142
--- NOTE | 2017-10-28 02:15 | NUR ---
Pt awake in bed at this time, turned and repositioned, pt in NAD, safety maintained, will continue POC as per MD orders.
--- NOTE | 2017-10-28 04:15 | NUR ---
Rounds Pt awake in bed at this time, pt seemed to not sleep much this evening. Safety maintained, all needs met at this time, continue POC as per MD orders.
[2017-10-28] MEDS: hydrALAZINE HCL 25 MG TABLET PO SCH ×3 (05:53→17:48)
[2017-10-28] MEDS: METOPROLOL TARTRATE 50 MG TABLET PO SCH ×3 (05:54→22:40)
[2017-10-28] MEDS: LEVOTHYROXINE SODIUM 0.025 MG TABLET PO SCH (06:01)
[2017-10-28] MEDS: INSULIN REGULAR, HUMAN 100 UNITS/ML, 10 ML VIAL (novoLIN R) SUBCUT PRN (06:11)
--- NOTE | 2017-10-28 06:30 | NUR ---
CLOSING Pt resting in bed at this time, in no acute distress, medications administered as per orders BP 152/70 HR 73. Blood glucose 80 and no correction required. IVF running as per MD orders. Pt cleaned and linen changed this am, small BM noted, incontinent of urine, sacral dressing changed at this time. Pt feet elevated on pillow. Safety maintained, bed alarm active, all needs met, turned and repositioned at this time, will endorse POC to day RN.
--- NOTE | 2017-10-28 07:24 | NUR ---
Initial notes: Patient on bed awake, alert and oriented to name. Non verbal. Stable. I.V. access patent. SAfety measure in placed. Report received at bedside.
[2017-10-28 08:00] VITALS: BP_SYST 145
[2017-10-28] MEDS: cefTRIAXone 1 GM in D5W 50 ML IV SCH (09:21)
[2017-10-28] MEDS: FERROUS SULFATE 300 MG/5 ML UDC PO SCH (09:22)
[2017-10-28] MEDS: ATORVASTATIN 10 MG TABLET PO SCH (09:22)
[2017-10-28] MEDS: DOCUSATE SODIUM 100 MG/10 ML UDC PO SCH ×2 (09:22→22:35)
[2017-10-28] MEDS: CARBIDOPA/LEVODOPA 10/100 MG TABLET PO SCH ×3 (09:22→22:37)
[2017-10-28] MEDS: DIVALPROEX SODIUM 250 MG TAB.SR.24H (DEPAKOTE ER) PO SCH ×2 (09:22→22:35)
[2017-10-28] MEDS: SERTRALINE HCL 50 MG TABLET PO SCH (09:23)
[2017-10-28] MEDS: amLODIPine BESYLATE 5 MG TABLET PO SCH (09:23)
[2017-10-28] MEDS: MULTIVITS,CA,MINERALS/IRON/FA 1 TABLET PO SCH (09:24)
[2017-10-28] MEDS: glipiZIDE XL 5 MG TAB ( GLUCOTROL XL) PO SCH (09:24)
[2017-10-28] MEDS: levETIRAcetam 500 MG TABLET PO SCH ×2 (09:24→22:36)
[2017-10-28] MEDS: ASCORBIC ACID 500 MG TABLET PO SCH (09:24)
[2017-10-28] MEDS: FAMOTIDINE 20 MG TABLET PO SCH (09:24)
[2017-10-28] MEDS: FOLIC ACID 1 MG TABLET PO SCH (09:24)
[2017-10-28] MEDS: LISINOPRIL 20 MG TABLET PO SCH ×2 (09:25→22:39)
--- NOTE | 2017-10-28 09:30 | NUR ---
rounds: patient on bed awake. medication given crushed with apple sauce.
--- NOTE | 2017-10-28 11:37 | NUR ---
rounds: patient on bed awake and non verbal. no distress noted.
[2017-10-28 12:11] VITALS: BP_SYST 187
--- NOTE | 2017-10-28 14:00 | NUR ---
Picc line consent: Called the next of kin Shraddha Winston and asked for the consent to place a PICC line. She agreed and she also said "pt used to have a PICC line before".
[2017-10-28 16:20] LABS: INR 1.1 (0.8-1.2); PROTHROMBIN TIME 10.7 SECS (9.5-12.5)
[2017-10-28 16:22] VITALS: BP_SYST 177
--- NOTE | 2017-10-28 17:53 | NUR ---
PICC line: PICC line in placed per PICC line nurse and verified by CXR.
[2017-10-28 19:00] VITALS: BP_SYST 160
--- NOTE | 2017-10-28 19:37 | NUR ---
closing notes: Patient on bed resting. Stable. Needs attended. PICC line in placed. Remains on contact precaution. Safety measures in placed. Call light within reach. Report given to JOCE Rios, at bedside.
[2017-10-28 20:00] VITALS: BP_SYST 160
[2017-10-28] MEDS: ENOXAPARIN SODIUM 30 MG/0.3 ML SYRINGE SUBCUT SCH (22:37)
[2017-10-29 00:38] VITALS: BP_SYST 191
[2017-10-29] MEDS: hydrALAZINE HCL 25 MG TABLET PO SCH ×4 (01:11→17:43)
[2017-10-29 05:00] VITALS: BP_SYST 165
[2017-10-29] MEDS: 0.45% NACL 1,000 ML IV SCH ×5 (05:55→17:43)
[2017-10-29] MEDS: METOPROLOL TARTRATE 50 MG TABLET PO SCH ×3 (06:03→21:51)
[2017-10-29] MEDS: LEVOTHYROXINE SODIUM 0.025 MG TABLET PO SCH (06:04)
--- NOTE | 2017-10-29 06:30 | NUR ---
pt.presented challenge po intake.pt.will consume 2-3 bites of pudding/apple sauce.pt.presents picc line:rt.bicpet: placement;10/28/17.dsg dry/intact.pt.presents persistent elevated b/p.pt.is receiving the administration;apresoline, lopressor:scheduled;clonidine:prn.pt.blood glucose is assessed ac/hs:pt.presents persistent hypoglycemic status. i have provided snacks:pt.presents lt.side weakness/impaired motor function:contractures.rt.lower extremity is extended but presents weak status.rt.arm presents rom;general:will attempt to grab items/scratch.ptr.presents old wound;sacrum;healed status;white/sheen skin.i have change the sacral dsg.pt.has been repositioned q-2hrs. changed/cleaned q 1-2hrs.iv fluids infusing.call light/telephone placed w/in the pt's reach.
[2017-10-29 06:41] LABS: BASOPHILS # (AUTO) 0.1 K/uL (0.0-0.2); BASOPHILS % (AUTO) 0.4 % (0.0-2.0); EOSINOPHILS # (AUTO) 0.1 K/uL (0.0-0.4); EOSINOPHILS % (AUTO) 0.7 % (0.0-4.0); HEMOGLOBIN 10.6 g/dL (12.0-16.0); LYMPHOCYTES # (AUTO) 1.4 K/uL (1.0-5.5); MEAN CORPUSCULAR HEMOGLOBIN 28 pg (27-31); MEAN CORPUSCULAR HGB CONC 33 % (32-36); MEAN CORPUSCULAR VOLUME 85 fL (79.0-98.0); MONOCYTES # (AUTO) 0.3 K/uL (0.0-1.0); MONOCYTES % (AUTO) 2.1 % (1.7-9.3); NEUTROPHILS # (AUTO) 12.2 K/uL (1.8-7.7); NEUTROPHILS % (AUTO) 86.8 % (40.0-70.0); PLATELET COUNT (AUTO) 547 K/uL (130-430); RED BLOOD CELL COUNT(AUTO) 3.77 MIL/uL (4.2-6.2); RED CELL DISTRIBUTION WIDTH 13.3 % (9.0-15.0); WHITE BLOOD COUNT (AUTO) 14.1 K/uL (4.8-10.8)
[2017-10-29 07:00] LABS: PROTHROMBIN TIME 10.6 SECS (9.5-12.5)
[2017-10-29 07:03] LABS: ANION GAP 7 (5-15); CALCIUM 8.7 mg/dL (8.4-11.0); CHLORIDE 108 mmol/L (98-107); CREATININE 0.69 mg/dL (0.55-1.30); GLUCOSE 74 mg/dL (70-99); POTASSIUM 3.8 mmol/L (3.5-5.1); SODIUM SERUM 139 mmol/L (136-145); UREA NITROGEN, BLOOD 19 mg/dL (8-21)
--- NOTE | 2017-10-29 08:00 | NUR ---
OPENING NOTE LATE ENTRY DUE TO PT CARE: REPORT IS RECEIVED FROM BURN CREW MEMBER NURSE AND CARE IS ENDORSED OVER TO MYSELF. PT IS RECEIVED AWAKE, ALERT, TO NAME ONLY. PT IS NONVERBAL. PT IS CONTRACTED FROM LEFT SIDE. PT IS TOTAL CARE. PICC LINE IS LOCATED IN RIGHT UPPER ARM, DOUBLE LUMEN WITH BOTH ACCESS FLUSHING AND BLOOD RETURN. FEET HAVE PITTING EDEMA +2 BILATERALLY. BED IS AT LOWEST POSITION, CALL LIGHT WITHIN REACH, THREE SIDE RAILS UP, BED ALARM IS ON. WILL CONTINUE TO MONITOR.
[2017-10-29] MEDS ORDERED: cloNIDine HCL 0.2 MG/24 HR PATCH.TDWK TD SCH (09:00)
[2017-10-29] MEDS: DOCUSATE SODIUM 100 MG/10 ML UDC PO SCH ×2 (09:48→21:50)
[2017-10-29] MEDS: FAMOTIDINE 20 MG TABLET PO SCH (09:48)
[2017-10-29] MEDS: levETIRAcetam 500 MG TABLET PO SCH ×2 (09:48→21:49)
[2017-10-29] MEDS: ASCORBIC ACID 500 MG TABLET PO SCH (09:48)
[2017-10-29] MEDS: FERROUS SULFATE 300 MG/5 ML UDC PO SCH (09:48)
[2017-10-29] MEDS: SERTRALINE HCL 50 MG TABLET PO SCH (09:49)
[2017-10-29] MEDS: glipiZIDE XL 5 MG TAB ( GLUCOTROL XL) PO SCH (09:49)
[2017-10-29] MEDS: FOLIC ACID 1 MG TABLET PO SCH (09:49)
[2017-10-29] MEDS: CARBIDOPA/LEVODOPA 10/100 MG TABLET PO SCH ×3 (09:49→21:50)
[2017-10-29] MEDS: DIVALPROEX SODIUM 250 MG TAB.SR.24H (DEPAKOTE ER) PO SCH ×2 (09:49→21:52)
[2017-10-29] MEDS: MULTIVITS,CA,MINERALS/IRON/FA 1 TABLET PO SCH (09:49)
[2017-10-29] MEDS: LISINOPRIL 20 MG TABLET PO SCH ×2 (09:50→21:51)
[2017-10-29] MEDS: ATORVASTATIN 10 MG TABLET PO SCH (09:50)
[2017-10-29] MEDS: amLODIPine BESYLATE 5 MG TABLET PO SCH (09:50)
[2017-10-29] MEDS: cefTRIAXone 1 GM in D5W 50 ML IV SCH (09:51)
--- NOTE | 2017-10-29 10:02 | NUR ---
ROUNDS LATE ENTRY DUE TO PT CARE: PT IS AWAKE AND ALERT. MORNING MEDICATIONS WERE GIVEN CRUSHED WITH APPLE SAUCE AND TOLERATED WELL. PT WAS REPOSITIONED TO RIGHT SIDE. BED IS AT LOWEST POSITION, CALL LIGHT WITHIN REACH, THREE SIDE RAILS UP, BED ALARM IS ON. WILL CONTINUE TO MONITOR.
[2017-10-29 12:07] VITALS: BP_SYST 191
--- NOTE | 2017-10-29 12:15 | NUR ---
DR. SARA ESPINOZA
--- NOTE | 2017-10-29 12:20 | NUR ---
ROUNDS LATE ENTRY DUE TO PT CARE: PT IS AWAKE AND PULLING ON HER SHEETS, SHE IS TARING HER CHUCKS, SHE IS TRYING TO PULLS ON HER PICC LINE, SHE IS PINCHING HERSELF. MD IS MADE AWARE AND INPUT ORDER FOR RIGHT MITTEN RESTRAINT TO KEEP PT FROM HARMING SELF DUE TO ALTERNATE INTERVENTIONS TRIED AND NOT SUCCESSFUL. NO INSULIN COVERAGE WAS NEEDED. CURRENT NEEDS ARE MET. BED IS AT LOWEST POSITION, CALL LIGHT WITHIN REACH, THREE SIDE RAILS UP, BED ALARM IS ON. WILL CONTINUE TO MONITOR.
[2017-10-29] MEDS ORDERED: FLUCONAZOLE 200 mg/ NS 100 ML IV ONE (12:30)
--- NOTE | 2017-10-29 14:03 | NUR ---
ROUNDS LATE ENTRY DUE TO PT CARE: PT IS RESTING IN BED. NO SIGNS OR SYMPTOMS OF DISTRESS OR SOB NOTED. PT WAS REPOSITIONED TO LEFT SIDE. BLOOD PRESSURE MEDICATION WAS GIVEN. CURRENT NEEDS ARE MET. BED IS AT LOWEST POSITION, CALL LIGHT WITHIN REACH, THREE SIDE RAILS UP, BED ALARM IS ON. WILL CONTINUE TO MONITOR.
--- NOTE | 2017-10-29 15:01 | NUR ---
Nutrition F/U Admitting Diagnosis UTI, lactic acidosis Reviewed Pertinent Medical/Surgical Hx Medical Record Patient Medical History Comment: PMH: Parkinson's disease, dementia, Seizure disorder, CKD, HTN, Hyperlipidemia, DM, chronic constipation, hypothyroidism, COPD protein malnutrition per MD notes. Pt also found w/: Sepsis, UTI, acute on chronic kidney failure, Parkinson's, dementia, Sz disorderm hypernatremia, HTN, hyperlipidemia, DM, chronic constipation, hypothyroidism, COPD, severe protein malnutrition per MD notes. 10/28/17 MD notes: Staph on Bacteremia Subjective Information Pt seen for follow up per protocol. Pt seen resting in bed at time of RD visit. +aphasic, +IV infusing. Per RN, MD's were thinking of NG tube placement, but family went against it. +PICC line. No other plans/procedure as of this time. Per RN notes, persistent hypoglycemic status, challenged PO intake, will consume 2-3 bites of pudding/apple sauce. Per MD, awake and attentive but non-verbal. for D/C to SNF. Per EMR, abd is soft and non-distended w/ hypoactive bowel sounds. I/O: 1050/0 +1050ml, IV total intake: 1050ml per 12 hrs. PO intake: 32% x 3 meals 10/28/17. Last BM 10/28/17 x 1. Pt is not yet meeting adequate nutrition w/ current PO intake. Pt is not appropriate for nutrition education. Current Diet Order/Nutrition Support Pureed diet nectar thick liquid x 3 day Patient/Significant Other Unable To Verbalize Education Provided Not Indicated Pertinent Medications lovenox, theragran, zoloft, folic acid, iron, pepcid, VIT C, synthroid, keppra, colace Pertinent Labs BUN 19 WNL (improved), Alb 2.6L (10/23/17), H/H 10.6L/32L, WBC 14.1H, RBC 3.77L Height (Feet) 5 feet Height (Inches) 3.00 inches Weight (Pounds) 84 pounds Weight (Calculated Kilograms) 38.399672 kilograms Patient Weight 38.102 kg Body Mass Index 14.88 kg/m2 %IBW 73 [place]/Adjusted Body Weight 115 lb/52 kg Recent Weight Change Yes - per EMR Weight Status Emaciated Last BM Oct 28, 2017 x1 Usual Diet At Home pureed diet at [facility] Skin Integrity Comment: Reggie scale: 10; per academic program specialist note 10/23/17: 1. Sacral area: Scar tissue, present on admission. Dark discoloration on surrounding tissue. 2. Left medial knee: Scab, present on admission. 100% black, dry scab. per RN notes: pale skin color Current % PO Poor (32%) Estimated Energy Expenditure (kcals/day) 1961-7045 kcal/day (BEE x 1.2-1.5 IBW for Sepsis) Estimated Protein Required (g/day) 31-104 gm/day (.6-2 gm/kg IBW for Renal disease pre-dialysis, Sepsis) Estimated Fluid Required (l/day) per MD (renal disease) Problem/Etiology/Signs/Symptoms Increased nutritional needs related to metabolic demands as evidenced by estimated calorie and protein needs for Sepsis. *ongoing Severe malnutrition related to chronic illness as evidenced by severe fat and muscle loss and BMI 14.9 kg/m2. *ongoing Expected Outcomes/Goals Monitor pt appetite and PO intake w/ goal of pt meeting at least 75% of estimated nutritional needs, labs trending WNL, normal GI function, skin integrity/wt maintenance. Dietitian Recommendations *Recommend continuing pureed diet nectar thick liquid per MD orders. Oral supplement Boost Plus comes standard w/ Pureed diet, provides additional 1080 kcal and 42 gm protein daily. Follow Up High Risk: F/U in 2-3days
[2017-10-29 16:06] VITALS: BP_SYST 195
--- NOTE | 2017-10-29 16:08 | NUR ---
ROUNDS LATE ENTRY DUE TO PT CARE: PT IS SLEEPING BUT IS EASILY AWAKEN. ORAL MEDICATION WAS GIVEN CRUSHED WITH APPLESAUCE AND TOLERATED WELL. NO SIGNS OR SYMPTOMS OF DISTRESS OR SOB NOTED. PT WAS TAKEN ON MITTEN RETRAINS FOR 10 MINUTES AND BEGAN PINCHING HERSELF AND TRYING TO HIT STAFF AND WAS PLACED BACK ON RIGHT MITTEN RESTRAINTS. BED IS AT LOWEST POSITION, CALL LIGHT WITHIN REACH, THREE SIDE RAILS UP, BED ALARM IS ON. WILL CONTINUE TO MONITOR.
--- NOTE | 2017-10-29 18:56 | NUR ---
CLOSING NOTE PT IS RESTING IN BED SLEEPING. NO SIGNS OR SYMPTOMS OF DISTRESS OR SOB NOTED. PT CONTINUES TO BE ON RIGHT MITTEN RESTRAINT DUE TO PT TRYING TO PULL OUT IV LINES AND HURTING HERSELF. CIRCULATION ON RIGHT HAND SHOWS CAP REFILL <3SECONDS. CURRENT NEEDS ARE MET. BED IS AT LOWEST POSITION, CALL LIGHT WITHIN REACH, THREE SIDE RAILS UP, BED ALARM IS ON. WILL CONTINUE TO MONITOR UNTIL CARE AND REPORT IS GIVEN TO LEAN PROCESS DEPLOYMENT CONSULTANT NURSE.
--- NOTE | 2017-10-29 19:40 | NUR ---
STARTING NOTE STITCHER SPECIAL MACHINE Patient is in bed resting. She appears restless and even though she is with a right hand mitten, she is still trying to pull out her equipment, and covers and scratches herself. She does not seem to be in pain or distress, she is only very confused. Patient is on room air, oxygen saturation is 96%. IV fluids are running smoothly on her RU arm PICC line, dressing is clean and intact. Fall precautions in place.
[2017-10-29 20:00] VITALS: BP_SYST 193
[2017-10-29] MEDS: ENOXAPARIN SODIUM 30 MG/0.3 ML SYRINGE SUBCUT SCH (21:52)
--- NOTE | 2017-10-29 22:45 | NUR ---
ROUNDS Patient in bed sleeping. Her systolic blood pressure is in the 180s despite the medications she has. The patient is asymptomatic, no distress noted. Addendum: 10/30/17 at 0528 by Dana Zambrano RN Upon administration of the evening medications the nurse noted that the patient does not want to open her mouth for her evening medications. It takes a lot of effort to convince her to open her mouth. The nurse will convey that to the day shift nurse, so she can speak with the doctor about alternative methods or other routes of med administration.
[2017-10-30] MEDS: hydrALAZINE HCL 25 MG TABLET PO SCH ×4 (00:17→11:54)
[2017-10-30 00:33] VITALS: BP_SYST 183
--- NOTE | 2017-10-30 01:35 | NUR ---
ROUNDS Patient is in bed sleeping. No pain or distress noted. Fall precautions in place.
[2017-10-30] MEDS: 0.45% NACL 1,000 ML IV SCH (03:05)
--- NOTE | 2017-10-30 05:00 | NUR ---
ROUNDS Patient in bed resting. No pain or distress noted. The nurse and the GUSSET EDGER cleaned the patient. She produces a sufficient amount of clear yellow urine.
[2017-10-30] MEDS: METOPROLOL TARTRATE 50 MG TABLET PO SCH ×3 (05:56→11:53)
[2017-10-30] MEDS: LEVOTHYROXINE SODIUM 0.025 MG TABLET PO SCH (07:00)
[2017-10-30 07:26] LABS: BASOPHILS % (AUTO) 0.3 % (0.0-2.0); EOSINOPHILS # (AUTO) 0.1 K/uL (0.0-0.4); EOSINOPHILS % (AUTO) 1.2 % (0.0-4.0); HEMATOCRIT 32.3 % (36-48); HEMOGLOBIN 10.4 g/dL (12.0-16.0); LYMPHOCYTES # (AUTO) 1.9 K/uL (1.0-5.5); LYMPHOCYTES % (AUTO) 16.2 % (20.5-51.5); MEAN CORPUSCULAR HEMOGLOBIN 28 pg (27-31); MEAN CORPUSCULAR HGB CONC 32 % (32-36); MEAN CORPUSCULAR VOLUME 85 fL (79.0-98.0); MONOCYTES # (AUTO) 0.5 K/uL (0.0-1.0); MONOCYTES % (AUTO) 4.5 % (1.7-9.3); NEUTROPHILS % (AUTO) 77.8 % (40.0-70.0); PLATELET COUNT (AUTO) 508 K/uL (130-430); RED BLOOD CELL COUNT(AUTO) 3.79 MIL/uL (4.2-6.2); RED CELL DISTRIBUTION WIDTH 13.4 % (9.0-15.0); WHITE BLOOD COUNT (AUTO) 11.5 K/uL (4.8-10.8)
[2017-10-30 07:42] LABS: ANION GAP 5 (5-15); CALCIUM 8.5 mg/dL (8.4-11.0); CHLORIDE 107 mmol/L (98-107); CREATININE 0.82 mg/dL (0.55-1.30); GLUCOSE 84 mg/dL (70-99); POTASSIUM 4.7 mmol/L (3.5-5.1); SODIUM SERUM 137 mmol/L (136-145); UREA NITROGEN, BLOOD 20 mg/dL (8-21)
[2017-10-30 07:45] VITALS: BP_SYST 214
--- NOTE | 2017-10-30 07:53 | NUR ---
CLOSING NOTE Patient in bed resting. She is very confused and she refused to open her mouth and take her morning medications. Her blood pressure was 186/80, HR 68. The nurse and the SEASONAL CLERK were in the room for at least 15 minutes trying to convince the patient to take her medications with pudding, but she absolutely refused to open her mouth. Previously, the nurse managed to make her open her mouth as she was more sleepy, but now she refused. Her morning blood sugar was 77, again she refused orange juice or anything else. For 6 am medications she had Metoprolol and Hydralazine. The nurse suggested to day shift nurse to ask the doctor for IV push medications. Also, the patient is on IV fluids 0.45% saline at 50 cc/hr, but in view of her history of hypoglycemia and her last blood sugar at 77, the patient might need to be on D5 0.45% NaCL IVF instead of only 0.45% NaCL. This was also conveyed to the day shift nurse. Patient is removing her nasal cannula constantly. Bed alarm in place, call light within reach.
--- NOTE | 2017-10-30 08:05 | NUR ---
Opening Note Patient laying in bed. Non-verbal. No difficulty breathing on 2L O2 via NC. Vital signs taken. Blood pressure 214/99. Extensions of RN, BAGGING SALVAGER and data programmer written on white board. Call light in reach but patient unable to use it. Mitten on right hand, PICC line to right upper arm patent. Safety, aspiration and seizure precautions in order. Bed alarm on.
[2017-10-30 08:22] VITALS: BP_SYST 214
[2017-10-30] MEDS: DOCUSATE SODIUM 100 MG/10 ML UDC PO SCH (09:00)
[2017-10-30] MEDS: cefTRIAXone 1 GM in D5W 50 ML IV SCH (09:35)
[2017-10-30] MEDS: SERTRALINE HCL 50 MG TABLET PO SCH (09:38)
[2017-10-30] MEDS: levETIRAcetam 500 MG TABLET PO SCH (09:38)
[2017-10-30] MEDS: FERROUS SULFATE 300 MG/5 ML UDC PO SCH (09:38)
[2017-10-30] MEDS: MULTIVITS,CA,MINERALS/IRON/FA 1 TABLET PO SCH (09:38)
[2017-10-30] MEDS: FAMOTIDINE 20 MG TABLET PO SCH (09:38)
[2017-10-30] MEDS: FOLIC ACID 1 MG TABLET PO SCH (09:38)
[2017-10-30] MEDS: CARBIDOPA/LEVODOPA 10/100 MG TABLET PO SCH (09:38)
[2017-10-30] MEDS: ASCORBIC ACID 500 MG TABLET PO SCH (09:38)
[2017-10-30] MEDS: ATORVASTATIN 10 MG TABLET PO SCH (09:38)
[2017-10-30] MEDS: LISINOPRIL 20 MG TABLET PO SCH (09:39)
[2017-10-30] MEDS: DIVALPROEX SODIUM 250 MG TAB.SR.24H (DEPAKOTE ER) PO SCH (09:39)
[2017-10-30] MEDS: amLODIPine BESYLATE 5 MG TABLET PO SCH (09:40)
--- NOTE | 2017-10-30 10:01 | NUR ---
Blood pressure Blood pressure rechecked after administration of medications. BP 196/91. Dr Robyn davis.
--- NOTE | 2017-10-30 11:07 | NUR ---
Discharge Planning: Pt has order to DC back to [facility], ARCHITECTURAL REPRESENTATIVE has faxed pt's information to [facility] for review ([phone] f.[phone]). ARCHITECTURAL REPRESENTATIVE will follow up to check bed availability.
--- NOTE | 2017-10-30 11:14 | NUR ---
Dr Carlson paged Awaiting phone call for intervention of patient's high blood pressure.
--- NOTE | 2017-10-30 11:59 | NUR ---
Discharge Planning: Pt hs been accepted back to [facility], pt will go to room 140B. Pt can come anytime. Ambulance has been set up for 2:00pm with [facility]([phone]). Nurse to nurse number: [phone]. Packet taken to nurses station.
[2017-10-30] MEDS: DEXTROSE 50%-WATER 50 ML DISP.SYRIN IVP PRN (12:03)
--- NOTE | 2017-10-30 12:10 | NUR ---
Shraddha, Friend, called Aware of Patient transfer to [facility]. All questions and concerns addressed.
--- NOTE | 2017-10-30 12:30 | NUR ---
Blood Glucose 55. Dextrose given IVP, per protocol. Will continue to monitor blood glucose.
--- NOTE | 2017-10-30 12:50 | NUR ---
Blood Glucose Checked after dextrose was given. 111, no further intervention needed.
[2017-10-30 12:55] VITALS: BP_SYST 196
[2017-10-30 13:20] VITALS: BP_SYST 149
--- NOTE | 2017-10-30 13:46 | NUR ---
Report Given to JOCE Carney at [facility]. All questions and concerns addressed. Aware that pick-up is at 1400.
[2017-10-30] MEDS ORDERED: hydrALAZINE HCL 25 MG TABLET PO SCH (14:00)
--- NOTE | 2017-10-30 14:25 | NUR ---
D/C Patient BRICK YARD HAND given medication reconciliation form and D/C instructions. Exit Care provided. Patient in stable condition, ID band removed. Report given to DONNY Romero from [facility]. All questions and concerns addressed.
== END 2017-10-30 14:25 | DRG 871 ==
LOC: SED 10:00 → SMU 12:21
PROVIDERS: ADMIT Family Medicine; ATTEND Internal Medicine
DX: A41.9 Sepsis, unspecified organism (principal); E43 Unspecified severe protein-calorie malnutrition; N17.0 Acute kidney failure with tubular necrosis; E87.0 Hyperosmolality and hypernatremia; E11.22 Type 2 diabetes mellitus with diabetic chronic kidney disease; G20 Parkinson's disease; E86.0 Dehydration; F02.80 Dementia in other diseases classified elsewhere, unspecified severity, without behavioral disturbance, psychotic disturbance, mood disturbance, and anxiety; Z68.1 Body mass index [BMI] 19.9 or less, adult; N12 Tubulo-interstitial nephritis, not specified as acute or chronic; E03.9 Hypothyroidism, unspecified; N18.9 Chronic kidney disease, unspecified; G40.909 Epilepsy, unspecified, not intractable, without status epilepticus; E78.5 Hyperlipidemia, unspecified; J44.9 Chronic obstructive pulmonary disease, unspecified; I12.9 Hypertensive chronic kidney disease with stage 1 through stage 4 chronic kidney disease, or unspecified chronic kidney disease; K59.09 Other constipation; B96.20 Unspecified Escherichia coli [E. coli] as the cause of diseases classified elsewhere; I25.10 Atherosclerotic heart disease of native coronary artery without angina pectoris; E78.00 Pure hypercholesterolemia, unspecified; F31.9 Bipolar disorder, unspecified; Z88.0 Allergy status to penicillin; Z79.899 Other long term (current) drug therapy; Z79.84 Long term (current) use of oral hypoglycemic drugs
CPT/HCPCS: 36415; 71045; 80048; 80053; 81000-TC; 82962; 83605; 84484; 85007; 85025; 85027; 85610-TC; 85730-TC; 87040-TC; 87081; 87086; 87186-TC; 93005; 94640; 96361; 96365; 99285; C1751; J0696; J1450; J1650; J1815; J1956; J3370; J7030; J7060